=== PATIENT | male | born 1995 | race Caucasian/White ===

== ENCOUNTER 2017-07-19 10:17 | Emergency (ER) | payer MEDICAID, SELFPAY ==
[2017-07-19 10:29] VITALS: BP 160/75; RESP 20; TEMP 37.1; O2SAT 100; BMI 21.3
--- NOTE | 2017-07-19 10:57 | HMH.EDUTC ---
[facility] – [place] Dis[place] Clinical Impression: Strain of left inguinal muscle Qualifiers: Encounter type: initial encounter Qualified Code(s): S39.013A - Strain of muscle, fascia and tendon of pelvis, initial encounter Disposition: Home, Self-Care Condition on Discharge: Good Instructions: DI for Groin Strain Additional Instructions: No lifting > 20 pounds until pain resolves; RTC or to ER if severe pain, color change, unreducible mass Referrals: Provider,Referral, MD [Primary Care Provider] - Time of Disposition: 11:02 Medical Decision Making - Medical Records Medical records reviewed: Yes: I reviewed the patient's medical records. Vital Signs: 07/19/17 10:29 Temperature 98.8 F Temperature Source Temporal Artery Scan Respiratory Rate 20 Blood Pressure [Left Arm] 160/75 Blood Pressure Mean [Left Arm] 103 Blood Pressure Source [Left Arm] Automatic Cuff Blood Pressure Position [Left Arm] Sitting 02 Sat by Pulse Oximetry 100 Oxygen Delivery Method Room Air - Jefferson Inquiry Pt receiving controlled substance: No [facility] – [place] HPI - General Stated complaint: pain in groin area Time Seen by Provider: 07/19/17 10:45 Mode of Arrival: Ambulatory Source of Information: Patient Limitations: No Limitations Description of Symptoms (Recalled from Triage Doc. by RN): GROIN PAIN X 4DAYS HEENT Symptoms (Recalled from RN notes): No Resp Symptoms (Recalled from RN notes): No Skin Symptoms (Recalled from RN notes): No MS Symptoms (Recalled from RN notes): No Functional Status (Recalled from RN notes): NA - History of Present Illness Provider Complaint: Left groin pain X 4-5 days after lifting fire wood. No palpable bulge or mass. Pain is intermittent. Worse with bending over or lifting. No pain with urination or defecation. No fever. No N/V/D. Onset (ago): day(s) (4) Location: genitals, left Severity: mild Quality: aching Consistency: intermittent Exacerbating factors: movement Treatments prior to arrival: none - Related Data Home Medications Medication Instructions Recorded Confirmed No Known Home Medications [No 07/19/17 07/19/17 Known Home Medications] Allergies Allergy/AdvReac Type Severity Reaction Status Date / Time No Known Allergies Allergy Verified 07/19/17 10:32 - Worker's Comp Is this a Worker's Comp case?: No [facility] History - *Social History Smoking Status: Current every day smoker Alcohol Intake: current Alcohol Intake Frequency:: a few times a week - Psychiatric History Expresses thoughts of harming self/others: None Suicide Plan Description: No Plan ROS Obtained: Yes All systems reviewed & no additional complaints - Genitourinary Male Genitourinary: Reports system reviewed and no additional complaints, except as docu, Denies difficulty urinating, Denies scrotal swelling, Denies testicular pain Physical Exam - General General appearance: alert, in no apparent distress - Chest Chest inspection: Present: normal inspection - Respiratory Respiratory exam: Present: normal lung sounds bilaterally - Cardiovascular Cardiovascular exam: Present: regular rate, normal rhythm - Abdominal Exam Abdominal exam: Present: soft Comment: Left groin tenderness without palpable mass; no increased tenderness or mass with Valsalva - exam: Present: normal inspection. Absent: testicular tenderness, scrotal swelling - Neurological Exam Neurological exam: Present: alert, oriented X3 - Psychiatric Psychiatric exam: Present: normal affect - Skin Skin exam: Present: warm, dry - Lymphatic Lymphatic Findings: no adenopathy
--- NOTE | 2017-07-19 11:01 | ED_ITS ---
[facility] [place] Clinical Impression: Strain of left inguinal muscle Qualifiers: Encounter type: initial encounter Qualified Code(s): S39.013A - Strain of muscle, fascia and tendon of pelvis, initial encounter Disposition: Home, Self-Care Condition on Discharge: Good Instructions: DI for Groin Strain Additional Instructions: No lifting > 20 pounds until pain resolves; RTC or to ER if severe pain, color change, unreducible mass Referrals: Provider,Referral, MD [Primary Care Provider] - Time of Disposition: 11:02 Medical Decision Making - Medical Records Medical records reviewed: Yes: I reviewed the patient's medical records. Vital Signs: 07/19/17 10:29 Temperature 98.8 F Temperature Source Temporal Artery Scan Respiratory Rate 20 Blood Pressure [Left Arm] 160/75 Blood Pressure Mean [Left Arm] 103 Blood Pressure Source [Left Arm] Automatic Cuff Blood Pressure Position [Left Arm] Sitting 02 Sat by Pulse Oximetry 100 Oxygen Delivery Method Room Air - Jefferson Inquiry Pt receiving controlled substance: No [facility] [place] - General Stated complaint: pain in groin area Time Seen by Provider: 07/19/17 10:45 Mode of Arrival: Ambulatory Source of Information: Patient Limitations: No Limitations Description of Symptoms (Recalled from Triage Doc. by RN): GROIN PAIN X 4DAYS HEENT Symptoms (Recalled from RN notes): No Resp Symptoms (Recalled from RN notes): No Skin Symptoms (Recalled from RN notes): No MS Symptoms (Recalled from RN notes): No Functional Status (Recalled from RN notes): NA - History of Present Illness Provider Complaint: Left groin pain X 4-5 days after lifting fire wood. No palpable bulge or mass. Pain is intermittent. Worse with bending over or lifting. No pain with urination or defecation. No fever. No N/V/D. Onset (ago): day(s) (4) Location: genitals, left Severity: mild Quality: aching Consistency: intermittent Exacerbating factors: movement Treatments prior to arrival: none - Related Data Home Medications Medication Instructions Recorded Confirmed No Known Home Medications [No 07/19/17 07/19/17 Known Home Medications] Allergies Allergy/AdvReac Type Severity Reaction Status Date / Time No Known Allergies Allergy Verified 07/19/17 10:32 - Worker's Comp Is this a Worker's Comp case?: No [facility] History - *Social History Smoking Status: Current every day smoker Alcohol Intake: current Alcohol Intake Frequency:: a few times a week - Psychiatric History Expresses thoughts of harming self/others: None Suicide Plan Description: No Plan ROS Obtained: Yes All systems reviewed & no additional complaints - Genitourinary Male Genitourinary: Reports system reviewed and no additional complaints, except as docu, Denies difficulty urinating, Denies scrotal swelling, Denies testicular pain Physical Exam - General General appearance: alert, in no apparent distress - Chest Chest inspection: Present: normal inspection - Respiratory Respiratory exam: Present: normal lung sounds bilaterally - Cardiovascular Cardiovascular exam: Present: regular rate, normal rhythm - Abdominal Exam Abdominal exam: Present: soft Comment: Left groin tenderness without palpable mass; no increased tenderness or mass with Valsalva - exam: Pres
== END 2017-07-19 11:08 | disposition home or self-care (01) ==
PROVIDERS: Emergency Provider Physician Assistant
DX: S39.013A Strain of muscle, fascia and tendon of pelvis, initial encounter (principal); F17.200 Nicotine dependence, unspecified, uncomplicated
CPT/HCPCS: 99202

== ENCOUNTER 2017-08-30 11:39 | Emergency (ER) | payer SELFPAY ==
[2017-08-30 11:53] VITALS: BP 133/85; PULSE 87; RESP 16; TEMP 36.8; O2SAT 98; BMI 21.3
--- NOTE | 2017-08-30 12:11 | XR_ITS ---
XR chest 2V HISTORY: ITS.REASON: flu symptoms, smoker, worsening cough, neg flu ORDERING PHYSICIAN: Shira Headley PATIENT AGE: 22 years COMPARISON: None available FINDINGS: The cardiomediastinal silhouette and pulmonary vascularity are within normal limits. The lungs are clear without infiltrates, suspicious nodules, or pleural effusions. No acute bony abnormalities. IMPRESSION: Negative chest, no acute finding
--- NOTE | 2017-08-30 12:14 | HMH.EDUTC ---
[facility] [place] Clinical Impression: Acute bronchitis Qualifiers: Bronchitis organism: unspecified organism Qualified Code(s): J20.9 - Acute bronchitis, unspecified Disposition: Home, Self-Care Condition on Discharge: Good Instructions: DI for Acute Bronchitis Additional Instructions: * STOP SMOKING!!!! * No sign of bacterial infection. * Monitor Temp. Feeling feverish and having a fever are not the same thing. Tylenol every 4 hours as needed no more then 5 times a day or 4000mg in 24 hours and/or ibuprofen every 6 hours as needed no more then 3200mg in 24 hours (as long as your primary care doctor has told you that it is ok to take both) for fever/aches/pain. ER if fever no less than 101 despite tylenol and ibuprofen * humidifier/vaporizer/hot steamy shower * Inhaler every 4-6 hours as needed like we discussed. If unsure how to use it, ask pharmacist to demonstrate how. Should help open airways and improve cough, wheezing, shortness of breath. * Mucinex during the day for your cough and cough suppressant only at night. Be sure to drink lots of water. Insurance may not cover a prescription of mucinex. Might be cheaper to get 400mg tablets and take 2 tablets morning, midday and evening all with lots of water. * Promethazine DM cough syrup will cause drowsiness. Use it only at night. No driving, operating machinery or caring for small children after taking it. * Start steroid today. Helps with inflammation therefore, cough and wheezing. Follow directions on package. Rvwd side effects. Pt reports they have taken them before. Follow up IMMEDIATELY for new or worsening symptoms OR no noticeable improvement over the next 48-72 hours. 911 for difficulty breathing. Prescriptions: Albuterol Sulfate [Albuterol HFA Inhaler] 1 - 2 puffs IH Q4-6H PRN #1 inh PRN Reason: Shortness Of Breath Or Wheezing methylPREDNISolone [Medrol] 4 mg PO DIRECTED #1 tab.ds.pk Promethazine/Dextromethorphan [Promethazine-Dm Syrup] 5 - 10 ml PO HS PRN #120 ml PRN Reason: Cough Referrals: Provider,Referral, MD [Primary Care Provider] - (we have provided you with a list of providers accepting patients. I would encourage you find a new primary care provider and make an appt JENNI as it can take weeks to get a new patient appointment. In the meantime, follow up in the clinic or ER for new, worsening or persistent symptoms.) Time of Disposition: 12:52 Medical Decision Making Vital Signs: 08/30/17 11:53 Temperature 98.3 F Temperature Source Oral Pulse Rate [Brachial] 87 Respiratory Rate 16 Blood Pressure [Left Arm] 133/85 Blood Pressure Mean [Left Arm] 101 Blood Pressure Source [Left Arm] Automatic Cuff Blood Pressure Position [Left Arm] Sitting 02 Sat by Pulse Oximetry 98 Oxygen Delivery Method Room Air - Lab Data Lab results reviewed: Yes: I reviewed the patient's lab results. Flu A neg Flu B neg Strep neg Orders (Tests/Meds): ORDERS Category Date Time Status CXR 2 view (NOT portable) [XR chest 2V] Stat Exams 08/30/17 12:11 Taken - Radiology Data #1 Image(s): Chest Image Reviewed: Yes I reviewed the patient's radiology image w/the ED provider Preliminary Findings: Normal/NAD Rvwd w/ Dr. Beckham, ER . No acute findings - Jefferson Inquiry Pt receiving controlled substance: No [facility] [place] - General Stated complaint: poss flu Time Seen by Provider: 08/30/17 12:00 Mode of Arrival: Ambulatory Source of Information: Patient Limitations: No Limitations HEENT Symptoms (Recalled from RN notes): Yes Resp Symptoms (Recalled from RN notes): Yes Skin Symptoms (Recalled from RN notes): No MS Symptoms (Recalled from RN notes): No Functional Status (Recalled from RN notes): n/a - History of Present Illness Provider Complaint: Here w/ mom c/o we think the flu . Started w/ scratchy throat one week ago that last 3 days. That resolved. Saturday, 2 days ago, feeling feverish, aches, chills, constant nonprod cough, sore throat n
[2017-08-30 12:55] VITALS: BP 134/75; PULSE 87; RESP 14; TEMP 37.1; O2SAT 100
[2017-08-30 13:13] LABS: UTC Influenza A Antigen Negative (Negative); UTC Influenza B Antigen Negative (Negative); UTC Strep Screen (Rapid) Negative (Negative)
== END 2017-08-30 13:00 | disposition home or self-care (01) ==
PROVIDERS: Emergency Provider Nurse Practitioner Family
DX: J20.9 Acute bronchitis, unspecified (principal)
CPT/HCPCS: 71046; 87804; 87880; 99203

== ENCOUNTER 2017-09-02 14:21 | Emergency (ER) | payer SELFPAY ==
[2017-09-02 15:29] VITALS: BP 134/80; PULSE 78; RESP 20; TEMP 36.8; O2SAT 98; BMI 21.3
--- NOTE | 2017-09-02 15:47 | HMH.EDUTC ---
[facility] – [place] Disposition Clinical Impression: URI (upper respiratory infection) Qualifiers: URI type: unspecified URI Qualified Code(s): J06.9 - Acute upper respiratory infection, unspecified Disposition: Home, Self-Care Condition on Discharge: Good Instructions: DI for Cough -- Adult, DI for Nasal Congestion Additional Instructions: * Monitor Temp. Tylenol and/or Ibuprofen as needed. ER if fever is no less than 101 despite alternating Tylenol and Ibuprofen * Encourage fluids, water, Gatorade, powerade, pedialyte if /toddler/or child * Warm salt water gargles for throat irritation *Warm fluids *Sore throat lozenges *Sleep elevated *humidifier or vaporizer Lots of rest Increase fluids, water, Gatorade, powerade *Flonase 2 sprays each nostril daily but may take 2-3 days to notice improvement with it Follow up IMMEDIATELY for new or worsening of symptoms OR no noticeable improvement over the next 48-72 hours. 911 immediately for any life threatening symptoms such as chest pain or difficulty breathing Prescriptions: Azithromycin [Z-Barrera 250mg Tab] 250 mg PO UD DOSE PK #6 tab Fluticasone Propionate [Flonase 50mcg nasal spray 16gm] 2 spr NS DAILY #1 bottle Referrals: Provider,Referral, MD [Primary Care Provider] - Forms: Work/School Release Time of Disposition: 16:11 Medical Decision Making - Medical Records Medical records reviewed: Yes: I reviewed the patient's medical records. Vital Signs: 09/02/17 15:29 Temperature 98.2 F Temperature Source Temporal Artery Scan Pulse Rate [Brachial] 78 Respiratory Rate 20 Blood Pressure [Right Arm] 134/80 Blood Pressure Mean [Right Arm] 98 Blood Pressure Source [Right Arm] Automatic Cuff Blood Pressure Position [Right Arm] Sitting 02 Sat by Pulse Oximetry 98 Oxygen Delivery Method Room Air - Jefferson Inquiry Pt receiving controlled substance: No Jefferson was queried for this patient: No [facility] [place] HPI - General Stated complaint: Poss Flu Mode of Arrival: Ambulatory Source of Information: Patient Limitations: No Limitations Description of Symptoms (Recalled from Triage Doc. by RN): SEEN A FEW DAYS AGO FOR FLU SYMPTOMS AND FEELS WORSE TODAY HEENT Symptoms (Recalled from RN notes): Yes Resp Symptoms (Recalled from RN notes): No Skin Symptoms (Recalled from RN notes): No MS Symptoms (Recalled from RN notes): No Functional Status (Recalled from RN notes): NA - History of Present Illness Provider Complaint: Patient mother state that he was seen her about 2 weeks ago State that he was diagnosed with virus State that he has continued to get worse State that he has been feverish, sinus pain and congestion and cough State that he has been taking the steriods like prescribed but has continued to get worse Statse that he has been having flu like symptoms, coughing achy, stuffy head and sore throat. - Related Data Previous Rx's Medication Instructions Recorded Albuterol Sulfate [Albuterol HFA 1 - 2 puffs IH Q4-6H PRN #1 inh 08/30/17 Inhaler] Promethazine/Dextromethorphan 5 - 10 ml PO HS PRN #120 ml 08/30/17 [Promethazine-Dm Syrup] methylPREDNISolone [Medrol] 4 mg PO DIRECTED #1 tab.ds.pk 08/30/17 Azithromycin [Z-Barrera 250mg Tab] 250 mg PO UD DOSE PK #6 tab 09/02/17 Fluticasone Propionate [Flonase 2 spr NS DAILY #1 bottle 09/02/17 50mcg nasal spray 16gm] Allergies Allergy/AdvReac Type Severity Reaction Status Date / Time No Known Allergies Allergy Verified 07/19/17 10:32 - Worker's Comp Is this a Worker's Comp case?: No [facility] History I have reviewed the patient's past medical history: Yes Medical History: Denies:: Cancer, Diabetes Mellitus Type 1, Diabetes Mellitus Type 2, Hypertension, MRSA Other Surgeries: Yes: No Previous Surgery Amputation: No Fractures: No - Social History Smoking Status: Current every day smoker Tobacco Type: cigarettes Alcohol Intake: never Alcohol Intake Frequency:: a few times a week - Psychiatric History Expresses tho
--- NOTE | 2017-09-02 16:02 | ED_ITS ---
[facility] – [place] Disposition Clinical Impression: URI (upper respiratory infection) Qualifiers: URI type: unspecified URI Qualified Code(s): J06.9 - Acute upper respiratory infection, unspecified Disposition: Home, Self-Care Condition on Discharge: Good Instructions: DI for Cough -- Adult, DI for Nasal Congestion Additional Instructions: * Monitor Temp. Tylenol and/or Ibuprofen as needed. ER if fever is no less than 101 despite alternating Tylenol and Ibuprofen * Encourage fluids, water, Gatorade, powerade, pedialyte if /toddler/or child * Warm salt water gargles for throat irritation *Warm fluids *Sore throat lozenges *Sleep elevated *humidifier or vaporizer Lots of rest Increase fluids, water, Gatorade, powerade *Flonase 2 sprays each nostril daily but may take 2-3 days to notice improvement with it Follow up IMMEDIATELY for new or worsening of symptoms OR no noticeable improvement over the next 48-72 hours. 911 immediately for any life threatening symptoms such as chest pain or difficulty breathing Prescriptions: Azithromycin [Z-Barrera 250mg Tab] 250 mg PO UD DOSE PK #6 tab Fluticasone Propionate [Flonase 50mcg nasal spray 16gm] 2 spr NS DAILY #1 bottle Referrals: Provider,Referral, MD [Primary Care Provider] - Forms: Work/School Release Time of Disposition: 16:11 Medical Decision Making - Medical Records Medical records reviewed: Yes: I reviewed the patient's medical records. Vital Signs: 09/02/17 15:29 Temperature 98.2 F Temperature Source Temporal Artery Scan Pulse Rate [Brachial] 78 Respiratory Rate 20 Blood Pressure [Right Arm] 134/80 Blood Pressure Mean [Right Arm] 98 Blood Pressure Source [Right Arm] Automatic Cuff Blood Pressure Position [Right Arm] Sitting 02 Sat by Pulse Oximetry 98 Oxygen Delivery Method Room Air - Jefferson Inquiry Pt receiving controlled substance: No Jefferson was queried for this patient: No [facility] – [place] HPI - General Stated complaint: Poss Flu Mode of Arrival: Ambulatory Source of Information: Patient Limitations: No Limitations Description of Symptoms (Recalled from Triage Doc. by RN): SEEN A FEW DAYS AGO FOR FLU SYMPTOMS AND FEELS WORSE TODAY HEENT Symptoms (Recalled from RN notes): Yes Resp Symptoms (Recalled from RN notes): No Skin Symptoms (Recalled from RN notes): No MS Symptoms (Recalled from RN notes): No Functional Status (Recalled from RN notes): NA - History of Present Illness Provider Complaint: Patient mother state that he was seen her about 2 weeks ago State that he was diagnosed with virus State that he has continued to get worse State that he has been feverish, sinus pain and congestion and cough State that he has been taking the steriods like prescribed but has continued to get worse Statse that he has been having flu like symptoms, coughing achy, stuffy head and sore throat. - Related Data Previous Rx's Medication Instructions Recorded Albuterol Sulfate [Albuterol HFA 1 - 2 puffs IH Q4-6H PRN #1 inh 08/30/17 Inhaler] Promethazine/Dextromethorphan 5 - 10 ml PO HS PRN #120 ml 08/30/17 [Promethazine-Dm Syrup] methylPREDNISolone [Medrol] 4 mg PO DIRECTED #1 tab.ds.pk 08/30/17 Azithromycin [Z-Barrera 250mg Tab] 250 mg PO UD DOSE PK #6 tab 09/02/17 Fluticasone Propionate [Flonase 2 spr NS DAILY #1 bottle 09/02/17 50mcg nasal spray 16gm] Allergies Allergy/AdvReac Type Severity Reaction
[2017-09-02 16:12] VITALS: BP 134/80; PULSE 78; RESP 20; TEMP 36.8; O2SAT 98
[2017-09-02 18:15] LABS: UTC Influenza A Antigen Negative (Negative); UTC Influenza B Antigen Negative (Negative); UTC Strep Screen (Rapid) Negative (Negative)
== END 2017-09-02 16:16 | disposition home or self-care (01) ==
PROVIDERS: Emergency Provider Nurse Practitioner
DX: J06.9 Acute upper respiratory infection, unspecified (principal); F17.210 Nicotine dependence, cigarettes, uncomplicated
CPT/HCPCS: 87804; 87880; 99202

== ENCOUNTER 2021-08-25 09:53 | Emergency (ER) | payer OTHER, SELFPAY ==
--- NOTE | 2021-08-25 10:22 | XR_ITS ---
FINAL REPORT TECHNIQUE: Chest PA & Lateral CLINICAL HISTORY: cough, congestion. patient vapes. pt states coughed up blood. pt shielded. COMPARISON: August 30, 2017 FINDINGS: 2 views of the chest were performed. The heart size is normal. The mediastinum is within normal limits. There is no acute cardiopulmonary process. There are no pleural effusions. There is no pneumothorax. The bony thorax appears intact. IMPRESSION: No acute cardiopulmonary process. Reviewed, Interpreted and Dictated by Livan Martin MD Transcribed by Benjy Esqueda Authenticated by Livan Martin MD on 08/25/2021 11:23:52 AM [facility]
--- NOTE | 2021-08-25 12:15 | HMH.EDUTC ---
[facility] – [place] Disposition Clinical Impression: Bronchitis Sinusitis Qualifiers: Sinusitis location: unspecified location Chronicity: acute Recurrence: non-recurrent Qualified Code(s): J01.90 - Acute sinusitis, unspecified Disposition: Home, Self-Care Condition on Discharge: Good Instructions: Sinusitis, DI for Sinusitis, DI for Acute Bronchitis Additional Instructions: Drink plenty of fluids. Take tylenol or ibuprofen for pain or fever. Take the medications as directed. Follow up with your regular doctor. GO TO THE ER FOR ANY WORSENING SYMPTOMS Prescriptions: Brompheniramine/Pseudoephed/Dm [Bromfed Dm Cough Syrup] 5 ml PO Q6HP PRN #240 ml PRN Reason: Cough Transmission Status: Received by [id number] methylPREDNISolone [Medrol] 4 mg PO DIRECTED 6 Days #21 packet Transmission Status: Received by [facility] guaiFENesin [Mucinex 600mg tablet] 1 - 2 tab PO BIDP PRN #30 tab PRN Reason: Congestion Transmission Status: Received by [facility] Azithromycin [Z-Barrera 250mg Tab*] 250 mg PO UD DOSE PK #6 tab Transmission Status: Received by [facility] Referrals: Provider,Referral, [Primary Care Provider] - Time of Disposition: 12:51 Medical Decision Making - Medical Records Medical records reviewed: No: I reviewed the patient's medical records. - Jefferson Inquiry Pt receiving controlled substance: No Vital Signs: 08/25/21 12:35 08/25/21 13:14 Temperature 97.8 F 97.8 F Temperature Source Oral Pulse Rate 55 L Pulse Rate [Left] 55 L Respiratory Rate 20 20 Blood Pressure 132/78 Blood Pressure [Right Arm] 132/78 Blood Pressure Mean [Right Arm] 96 02 Sat by Pulse Oximetry 100 - Lab Data Lab Results 08/25/21 12:32: Strep Scn Rapid Clinic Negative - Radiology Data #1 Image(s): Chest Image Reviewed: Yes I reviewed the patient's radiology image, Yes I have reviewed radiologist's interpretation Preliminary Findings: Normal/NAD, No Infiltrates Seen FINAL REPORT FINAL REPORT TECHNIQUE: Chest PA & Lateral CLINICAL HISTORY: cough, congestion. patient vapes. pt states coughed up blood. pt shielded. COMPARISON: August 30, 2017 FINDINGS: 2 views of the chest were performed. The heart size is normal. The mediastinum is within normal limits. There is no acute cardiopulmonary process. There are no pleural effusions. There is no pneumothorax. The bony thorax appears intact. IMPRESSION: No acute cardiopulmonary process. Reviewed, Interpreted and Dictated by Livan Martin MD Transcribed by Benjy Esqueda Authenticated by Livan Martin MD on 08/25/2021 11:23:52 AM [facility] HPI - General Stated complaint: coughing up blood Time Seen by Provider: 08/25/21 12:15 - History of Present Illness Provider Complaint: He states that he has had a cough and chest congestion for the past 3 days or so. He is now getting more congestion in his sinuses too. He primarily came in today because this morning he coughed up some sputum that appeared bloody. He denies any shortness of breath and chest pain. He denies any known covid-19 exposure. - Related Data Previous Rx's Medication Instructions Recorded Triamcinolone Acetonide 1 applicatio TP TIDP PRN 7 Days #1 01/27/19 tube methylPREDNISolone [Medrol] 4 mg PO DIRECTED 6 Days #21 01/27/19 tab.ds.pk Azithromycin [Z-Barrera 250mg Tab*] 250 mg PO UD DOSE PK #6 tab 08/25/21 Brompheniramine/Pseudoephed/Dm 5 ml PO Q6HP PRN #240 ml 08/25/21 [Bromfed Dm Cough Syrup] guaiFENesin [Mucinex 600mg tablet] 1 - 2 tab PO BIDP PRN #30 tab 08/25/21 methylPREDNISolone [Medrol] 4 mg PO DIRECTED 6 Days #21 08/25/21 packet Allergies Allergy/AdvReac Type Severity Reaction Status Date / Time No Known Allergies Allergy Verified 07/19/17 10:32 [facility] History - Hepatitis A Screen Attestation statement:: This patient has been screened for Hepatitis A risk factors.
[2021-08-25 12:35] VITALS: BP 132/78; PULSE 55; RESP 20; TEMP 36.6; O2SAT 100; BMI 21.9
[2021-08-25 12:48] LABS: UTC Strep Screen (Rapid) Negative (Negative)
[2021-08-25 13:14] VITALS: BP 132/78; PULSE 55; RESP 20; TEMP 36.6
== END 2021-08-25 13:14 | disposition home or self-care (01) ==
PROVIDERS: Emergency Provider Nurse Practitioner Family
DX: J20.9 Acute bronchitis, unspecified (principal); J01.90 Acute sinusitis, unspecified
CPT/HCPCS: 71046; 87880; 99202; C9803; G0463; U0003; U0005

== ENCOUNTER 2023-08-02 19:18 | Emergency (ER) | payer OTHER, SELFPAY ==
[2023-08-02 19:19] VITALS: BP 145/80; PULSE 115; RESP 20; TEMP 37.9; O2SAT 96; BMI 22.5
[2023-08-02 19:25] VITALS: BMI 22.5
[2023-08-02 19:34] LABS: Coronavirus 19, PCR Not Detected (NotDetected); Influenza B, PCR Not Detected (NotDetected)
[2023-08-02] MEDS: IBUPROFEN 600 MG TABLET PO (19:55)
[2023-08-02] MEDS: ACETAMINOPHEN 500MG TAB 1000 MG PO (19:55)
[2023-08-02 19:56] LABS: Influenza A, PCR Detected (NotDetected)
[2023-08-02] MEDS: DEXAMETHASONE 4MG TABLET 10 MG PO (19:56)
[2023-08-02 20:01] VITALS: BP 138/79; PULSE 100; RESP 20; TEMP 37.6; O2SAT 96
--- NOTE | 2023-08-02 20:01 | ED_ITS ---
Discharge Plan Disposition Patient Disposition: Home, Self-Care Prescriptions Prescriptions: New oseltamivir [Tamiflu] 75 mg capsule 75 mg PO BID 5 Days Qty: 10 0RF No Action triamcinolone acetonide 15 GM cream 1 applicatio TP TIDP PRN (Reason: Itching) 7 Days Qty: 1 0RF methylprednisolone 4 MG tablets,dose pack 4 mg PO DIRECTED 6 Days Qty: 21 0RF azithromycin 250 MG tablet 250 mg PO UD DOSE PK Qty: 6 0RF Rx Instructions: Take two (2) tablets today, then one (1) tablet days #2 thru #5 xbsxbkgoefjhoao-kgediapdg-JF 118 ML syrup 5 ml PO Q6HP PRN (Reason: Cough) Qty: 240 0RF guaifenesin 600 MG tablet extended release 12hr 1 - 2 tab PO BIDP PRN (Reason: Congestion) Qty: 30 0RF methylprednisolone 4 MG tablets,dose pack 4 mg PO DIRECTED 6 Days Qty: 21 0RF Referrals Follow up/Referrals: Provider,Referral, MD [Primary Care Provider] - See instructions Activity Restrictions/Add. Instructions Additional Instructions/Restrictions: Tamiflu twice daily for 5 days. Call your family doctor to establish care for this visit to the emergency department and schedule follow-up within 48 hours to ensure improvement. If you have any worsening of your condition or any other concerning signs or symptoms, return to the emergency department or your primary care doctor for further evaluation. Take Tylenol 1000 mg every 6 hours (4 times daily) and ibuprofen 400 mg every 6 hours (4 times daily) as needed with food and water to prevent GI upset and kidney damage. Daily Zyrtec or Claritin will also help. Clinical Impressions Clinical Impression: Influenza A Stand Alone Forms Stand Alone Forms: Work/School Release Discharge ED Provider: Vitaly Palacio General Adult HPI General Chief complaint: Fever Stated complaint: fever 104.4 ba munoz cough runny nose Time Seen by Provider: 08/02/23 19:22 Mode of Arrival: Family Vehicle Source of Information: Patient Limitations: No Limitations Description of Symptoms (Recalled from ER Triage Doc. by RN): 28 y/o male presents to the ED for fever and body aches X 2 days. Pt is A&O*4. Pt has taken OTC flu medicine today. Last dose approx an hour ago. History of Present Illness HPI narrative: 28-year-old male no relevant medical history presenting with fevers, chills, body aches. Started yesterday, 08/01 afternoon. Has been taking Tylenol, Yvrose- [place], NyQuil without much relief came for further evaluation. Related Data Previous Rx's Medication Instructions Recorded methylprednisolone 4 mg tablets in 4 mg PO DIRECTED 6 days ##21 01/27/19 a dose pack triamcinolone acetonide 0.025 % 1 applicatio TP TIDP PRN Itching 7 01/27/19 topical cream days #1 tube azithromycin 250 mg tablet 250 mg PO UD DOSE PK #6 tabs 08/25/21 pcfhjqmqpjoqaij-bzdxcsoykuguaxs-XJ 5 ml PO Q6HP PRN Cough #240 mL 08/25/21 2 mg-30 mg-10 mg/5 mL oral syrup guaifenesin 600 mg tablet, 1 - 2 tab PO BIDP PRN Congestion 08/25/21 extended release 12 hr #30 tabs methylprednisolone 4 mg tablets in 4 mg PO DIRECTED 6 days #21 08/25/21 a dose pack packets oseltamivir 75 mg capsule (Tamiflu) 75 mg PO BID 5 days #10 caps 08/02/23 Allergies Allergy/AdvReac Type Severity Reaction Status Date / Time No Known Allergies Allergy Verified 07/19/17 10:32 [facility] Disclaimer: The information contained in this section may have been updated after the patient was seen, as this information can be updated by other users. Social History Smoking Status: Current every day smoker tobacco type: cigarettes packs per day: 1 alcohol intake: never current occupational status: other Travel in the last 8 weeks: None ROS Obtained: Yes All systems reviewed & no additional complaints except as documented Physical Exam General General appearance: alert and in no apparent distress Head Head exam: atraumatic and normocephalic Eye Eye exam: Present normal appearance, PERRL and EOMI ENT ENT exam: Present mucous membranes moist Neck Neck exam: Present normal inspection, full ROM and trachea midline Respiratory Respiratory exam: Absent respiratory distress, wheezes, stridor, accessory muscle use or prolonged expiratory phase Cardiovascular Cardiovascular exam: Present normal rhythm Abdominal Exam Abdominal exam: Present soft; Absent distention, tenderness, guarding, rebound or rigidity Extremities Exam Extremities exam: Absent edema Neurological Exam Neurological exam: Present alert, oriented X3, CN II-XII intact and normal gait; Absent motor sensory deficit Skin Skin exam: Present warm and dry; Absent diaphoresis or erythema Medical Decision Making Medical Records Medical records reviewed: Yes I reviewed the patient's medical records. [place] Inquiry Pt receiving controlled substance: No [place] was queried for this patient: No Vital Signs: 08/02/23 19:19 08/02/23 19:36 08/02/23 20:01 Temperature 100.3 F H 99.7 F H Temperature Source Oral Oral Oral Pulse Rate 100 H Pulse Rate [Left] 115 H Respiratory Rate 20 20 Blood Pressure 138/79 Blood Pressure [Left Arm] 145/80 H Blood Pressure Mean [Left Arm] 101 Blood Pressure Source [Left Arm] Automatic Cuff Blood Pressure Position [Left Arm] Sitting 02 Sat by Pulse Oximetry 96 Oxygen Delivery Method Room Air Lab Data Lab Results 08/02/23 19:24: SARS-CoV-2 (PCR) Not detected, Influenza A Untype (PCR) Detected A, Influenza Type B (PCR) Not detected Orders (Tests/Meds): ED MEDICATIONS Discontinued Medications Generic Name Dose Route Start Last Admin Trade Name Freq PRN Reason Stop Dose Admin Acetaminophen 1,000 mg 08/02/23 19:44 08/02/23 19:55 Acetaminophen 500mg Tab PO 08/02/23 19:45 1,000 mg ONCE ONE Administration Dexamethasone 10 mg 08/02/23 19:56 08/02/23 19:56 Dexamethasone 4mg Tablet PO 08/02/23 19:57 10 mg ONCE ONE Administration Ibuprofen 600 mg 08/02/23 19:44 08/02/23 19:55 Ibuprofen 600 Mg Tablet PO 08/02/23 19:45 600 mg ONCE ONE Administration ORDERS Category Date Time Status Rapid PCR Covid and Flu A/B Stat Lab 08/02/23 19:24 Completed Medical Decision Narrative: 28-year-old male no relevant medical history presenting with fevers, chills, body aches. Started yesterday, 08/01 afternoon. Has been taking Tylenol, Yvrose- [place], NyQuil without much relief came for further evaluation. History was obtained via conversation with patient. On arrival, patient hemodynamically stable, alert, oriented x4, appropriate, GCS 15, moving all extremities spontaneously, pupils equal and reactive to light. Full physical exam performed and significant for very well-appearing male. Intermittently sneezing and coughing. He is febrile and mildly tachycardic. No respiratory distress. Normal cardiopulmonary exam. Differential includes viral syndrome, among others. Patient was given Tylenol, Motrin, Decadron for symptomatic management and correction of underlying abnormalities. Workup independently interpreted and significant for influenza A positivity. Because patient at baseline without signs or symptoms of clinical decompensation, deemed appropriate for discharge. Results were relayed to patient who voiced understanding and were agreeable to outpatient management and follow up. At the time of discharge the patient was hemodynamically stable, tolerating PO, and mobilizing appropriately. Critical Care Critical Care Time Critical Care Time: No
== END 2023-08-02 20:13 | disposition home or self-care (01) ==
PROVIDERS: Emergency Provider Emergency Medicine
DX: J10.1 Influenza due to other identified influenza virus with other respiratory manifestations (principal); R50.9 Fever, unspecified; R05.9 Cough, unspecified; F17.210 Nicotine dependence, cigarettes, uncomplicated
CPT/HCPCS: 87636; 99283

== ENCOUNTER 2024-03-17 15:21 | Emergency (ER) | payer BC, SELFPAY ==
--- NOTE | 2024-03-17 15:47 | EXP.UTC ---
Discharge Plan Disposition Patient Disposition: Home, Self-Care Condition: Good Prescriptions Prescriptions: No Action oseltamivir [Tamiflu] 75 mg capsule 75 mg PO BID 5 Days Qty: 10 0RF triamcinolone acetonide 15 GM cream 1 applicatio TP TIDP PRN (Reason: Itching) 7 Days Qty: 1 0RF methylprednisolone 4 MG tablets,dose pack 4 mg PO DIRECTED 6 Days Qty: 21 0RF azithromycin 250 MG tablet 250 mg PO UD DOSE PK Qty: 6 0RF Rx Instructions: Take two (2) tablets today, then one (1) tablet days #2 thru #5 iovrayvptiavowl-fjooolnjn-HJ 118 ML syrup 5 ml PO Q6HP PRN (Reason: Cough) Qty: 240 0RF guaifenesin 600 MG tablet extended release 12hr 1 - 2 tab PO BIDP PRN (Reason: Congestion) Qty: 30 0RF methylprednisolone 4 MG tablets,dose pack 4 mg PO DIRECTED 6 Days Qty: 21 0RF Referrals Follow up/Referrals: Yonas Macedo DO [Staff Physician] - See instructions Provider,Referral, [Primary Care Provider] - See instructions Activity Restrictions/Add. Instructions Additional Instructions/Restrictions: Rest the extremity, Wear the giancarlo wrap for compression, Elevate the extremity as tolerated while you are resting. Take ibuprofen for pain. Follow up with Dr. Macedo (orthopedics) if you continue to have symptoms. I put in a referral but you need to call his office and schedule an appointment. Follow up with your regular doctor. GO TO THE ER FOR ANY WORSENING SYMPTOMS Clinical Impressions Clinical Impression: Contusion of leg, right, Traumatic ecchymosis of right lower leg Instructions Patient Instructions: Contusion, DI for Contusion Print Language Print Language: Bengali Discharge ED Provider: Basil Parham [facility] General Stated complaint: RT leg pain Time Seen by Provider: 03/17/24 15:47 History of Present Illness Provider Complaint: He states that he was hit on is right parra area with a very heavy pipe 1 week ago while unloading it from a truck. Since then he has had right lower leg pain. Over the past few days he has had bruising of the affected area and some bruising of his ankle and heel area, despite not being injured there. He denies any other injury or complaints. Related Data Previous Rx's ?Medication ?Instructions ?Recorded methylprednisolone 4 mg tablets in 4 mg PO DIRECTED 6 days ##21 01/27/19 a dose pack triamcinolone acetonide 0.025 % 1 applicatio TP TIDP PRN Itching 7 01/27/19 topical cream days #1 tube azithromycin 250 mg tablet 250 mg PO UD DOSE PK #6 tabs 08/25/21 fvjfnpyflswlssk-zawqcjfvortdhhi-QM 5 ml PO Q6HP PRN Cough #240 mL 08/25/21 2 mg-30 mg-10 mg/5 mL oral syrup guaifenesin 600 mg tablet, 1 - 2 tab PO BIDP PRN Congestion 08/25/21 extended release 12 hr #30 tabs methylprednisolone 4 mg tablets in 4 mg PO DIRECTED 6 days #21 08/25/21 a dose pack packets oseltamivir 75 mg capsule (Tamiflu) 75 mg PO BID 5 days #10 caps 08/02/23 Allergies Allergy/AdvReac Type Severity Reaction Status Date / Time No Known Allergies Allergy Verified 07/19/17 10:32 [facility] Disclaimer: The information contained in this section may have been updated after the patient was seen, as this information can be updated by other users. Social History Smoking Status: Current every day smoker tobacco type: cigarettes packs per day: 1 alcohol intake: never current occupational status: other Travel in the last 8 weeks: None ROS Obtained: Yes All systems reviewed & no additional complaints except as documented Constitutional Constitutional: Denies chills and Denies fever(s) Eyes Eyes: Denies eye discharge ENT Ears, Nose, Mouth, and Throat: Denies dizziness, Denies otalgia and Denies sore throat Cardiovascular Cardiovascular: Denies chest pain Respiratory Respiratory: Denies shortness of breath, Denies chest congestion, Denies cough, Denies stridor and Denies wheezing Gastrointestinal Gastrointestingal: Denies nausea or vomiting Musculoskeletal Musculoskeletal: Reports as per HPI Integumentary/Breasts Skin/Breast: Reports as per HPI Neurologic Neurologic: Denies dizziness and Denies paresthesias Allergic/Immunologic Allergic/Immunologic: Denies wheezing Physical Exam General General appearance: alert and in no apparent distress Head Head exam: atraumatic, normocephalic and normal inspection Eye Eye exam: Present normal appearance, PERRL and EOMI ENT ENT exam: Present normal exam, normal oropharynx, mucous membranes moist, TM's normal bilaterally and normal external ear exam Neck Neck exam: Present normal inspection, full ROM and trachea midline; Absent meningismus or lymphadenopathy Chest Chest inspection: Present normal inspection and symmetric chest wall rise; Absent tenderness Respiratory Respiratory exam: Present normal lung sounds bilaterally; Absent respiratory distress Cardiovascular Cardiovascular exam: Present regular rate and normal rhythm; Absent JVD Abdominal Exam Abdominal exam: Present soft and normal bowel sounds; Absent distention, tenderness or guarding Extremities Exam Extremities exam: Present normal capillary refill; Absent calf tenderness Expanded Lower Extremity Exam Right: Hip/Pelvis exam: Present normal inspection and full ROM; Absent tenderness Upper leg exam: Present normal inspection and full ROM; Absent tenderness Knee exam: Present normal inspection, full ROM and knee extension intact; Absent tenderness Lower leg exam: Present tenderness, swelling and Achilles tendon intact; Absent abrasion, laceration, ecchymosis, deformity, crepitus, dislocation, erythema, palpable cord or Homans' sign Ankle exam: Present normal inspection, full ROM and ecchymosis; Absent tenderness Foot/toe exam: Present normal inspection and full ROM; Absent tenderness Neurovascular/Tendon exam: Present normal capillary refill, normal 2-point discrimination and normal fine/light touch; Absent pulse deficit, motor deficit, sensory deficit, tendon deficit, extremity cold to touch or pallor Gait: observed and normal Back Exam Back exam: Present normal inspection; Absent tenderness Neurological Exam Neurological exam: Present alert and oriented X3 Psychiatric Psychiatric exam: Present normal affect and normal mood Skin Skin exam: Present warm, dry, intact and normal color Lymphatic Lymphatic Findings: no adenopathy Medical Decision Making Medical Records Medical records reviewed: No I reviewed the patient's medical records. Screening: Per USPSTF and CDC recommendations, given the prevalence of disease in our region, it is our hospital?s policy to screen for HIV and viral Hepatitis for all patients aged 18 and over and those with ongoing risk factors. [place] Inquiry Pt receiving controlled substance: No Radiology Data #1: Image(s): Tib/Fib Image Reviewed: Yes I reviewed the patient's radiology image and Yes I have reviewed radiologist's interpretation Preliminary Findings: Normal/NAD Accession No. : [id number] Patient Name / ID : AASHISH THOMAS / [id number] Exam Date : 03/17/2024 17:15:27 ( Final ) Study Comment : Sex / Age : F / 70Y Creator : JOAN BEAL MD Dictator : Scientific Affairs Manager : [employer] Equipment Operator : JOAN BEAL MD Approver2 : Report Date : 03/17/2024 17:51:44 My Comment : PROCEDURE INFORMATION: Exam: XR Right Hand Exam date and time: 03/17/2024 5:15 PM Age: 70 years old Clinical indication: Injury or trauma; Other: Pin went into finger, unsure if part of pin is still in there or not; Puncture; Right; Index finger; Additional info: Pin stuck in finger TECHNIQUE: Imaging protocol: Radiologic exam of the right hand. Views: 3 or more views. COMPARISON: No relevant prior studies available. FINDINGS: Bones/joints: No acute osseous injury. Mild degenerative changes 1st basal joint. Soft tissues: There is some soft tissue swelling. No radiopaque foreign body is seen. IMPRESSION: No radiopaque foreign body or acute osseous abnormality. Procedures Risk/Benefits of Procedure(s) Were Explained: Yes Orthopedic Splinting/Casting Injury #1: Side: right Lower Extremity Injury Location: lower leg Lower Extremity Immobilizer: Giancarlo wrap and applied by nurse/dr ackerman Post Cast/Splinting Neuro Status: intact and no change Post Cast/Splinting Vasc Status: intact and no change
[2024-03-17 15:51] VITALS: BP 165/102; PULSE 61; RESP 16; TEMP 36.6; O2SAT 100; BMI 27.2
--- NOTE | 2024-03-17 15:51 | XR_ITS ---
FINAL REPORT CLINICAL HISTORY: hit red spot from being hit by a pipe in mid of lower leg , bruising down leg to ankle FINDINGS: Right tibia fibula Two views were obtained. There is no acute fracture or dislocation. The joint spaces appear normal. No soft tissue abnormality is identified. IMPRESSION: No acute process. Reviewed, Interpreted and Dictated by Livan Martin MD Transcribed by Monserrat Nunez Authenticated and [facility]
[2024-03-17 16:58] VITALS: BP 165/102; PULSE 61; RESP 16; TEMP 36.6; O2SAT 100
== END 2024-03-17 16:59 | disposition home or self-care (01) ==
PROVIDERS: Emergency Provider Nurse Practitioner Family
DX: S80.11XA Contusion of right lower leg, initial encounter (principal); M79.604 Pain in right leg; W20.8XXA Other cause of strike by thrown, projected or falling object, initial encounter
CPT/HCPCS: 73590; 99212; 99213; G0463

== ENCOUNTER 2024-10-12 21:29 | Emergency (ER) | payer BC, SELFPAY ==
[2024-10-12] VITALS (7 sets, daily range): BP systolic 134–173; BP diastolic 82–105; PULSE 73–87; RESP 13–22; TEMP 36.6–36.7; O2SAT 99–100; BMI 27.7
--- NOTE | 2024-10-12 21:27 | ECG_ITS ---
APPROVED REPORT Exam: Resting ECG HR:81 bpm ECG Measurements Heart Rate 81 AXES WY 108 P 68 QRSd 90 QRS 59 QT 323 T -3 QTc 360 Conclusion SINUS RHYTHM WITH SHORT WY INTERVAL NONSPECIFIC T-WAVE ABNORMALITY ABNORMAL ECG UNCONFIRMED REPORT Electronically signed by : Basil Nolasco, 10/12/2024 22:58:55
--- NOTE | 2024-10-12 21:58 | XR_ITS ---
PROCEDURE INFORMATION: Exam: XR Chest Exam date and time: 10/12/2024 10:07 PM Age: 29 years old Clinical indication: Dyspnea TECHNIQUE: Imaging protocol: Radiologic exam of the chest. Views: 1 view. COMPARISON: CR XR CHEST 2V 08/25/2021 10:18 AM FINDINGS: Tubes, catheters and devices: None. Lungs: Left lung volume appears decreased. Bilateral pulmonary linear interstitial opacities identified within lower lungs. The pulmonary opacities are most prominent within the lower right lung. The bilateral upper lungs appear clear. Pleural spaces: No pleural effusion. No pneumothorax. Heart/Mediastinum: Mediastinum and delmar appear unremarkable. Diaphragm: Elevation of the left hemidiaphragm is demonstrated. Bones/joints: No acute bony abnormality identified. IMPRESSION: Pulmonary atelectasis or acute infiltrates within lower chest bilaterally.
[2024-10-12] MEDS: LACTATED RINGERS 1000ML 1,000 ML 999 ML IV (22:02)
[2024-10-12] MEDS: KETOROLAC 30MG/ML VIAL 15 MG IV (22:02)
[2024-10-12 22:08] LABS: Basophils # 0.1 K/mm3 (0-0.2); Basophils % 0.3 % (0.1-2.0); Eosinophils # 0.2 K/mm3 (0.0-0.4); Hematocrit 50.1 % (42.0-52.0); Lymphocytes % 14.1 % (10-50); Mean Corpuscular HGB Conc 33.9 g/dL (31.8-35.4); Mean Corpuscular Hemoglobin 30.5 pg (27.0-31.2); Mean Corpuscular Volume 89.9 fl (80-94); Mean Platelet Volume 9.5 fl (7.4-10.4); Monocytes # 0.8 K/mm3 (0.1-1.0); Monocytes % 5.5 % (1.7-9.3); Neutrophils # 11.4 K/mm3 (1.8-7.8); Neutrophils % 78.5 % (37.0-80.0); Nucleated Red Blood Cells # 0 10^3/uL; Nucleated Red Blood Cells % 0 %; Platelet Count 221 K/mm3 (142-424); Red Blood Count 5.57 M/mm3 (4.60-6.20); Red Cell Distribution Width 11.9 % (11.5-17.5); Red Cell Distribution Width-SD 39.2 fL; White Blood Count 14.5 K/mm3 (4.8-10.8)
--- NOTE | 2024-10-12 22:26 | [facility].EDCP ---
Discharge Plan Disposition Patient Disposition: Home, Self-Care Prescriptions Prescriptions: No Action oseltamivir [Tamiflu] 75 mg capsule 75 mg PO BID 5 Days Qty: 10 0RF triamcinolone acetonide 15 GM cream 1 applicatio TP TIDP PRN (Reason: Itching) 7 Days Qty: 1 0RF methylprednisolone 4 MG tablets,dose pack 4 mg PO DIRECTED 6 Days Qty: 21 0RF azithromycin 250 MG tablet 250 mg PO UD DOSE PK Qty: 6 0RF Rx Instructions: Take two (2) tablets today, then one (1) tablet days #2 thru #5 sarowprkvtkybjx-ioyabpxzj-YN 118 ML syrup 5 ml PO Q6HP PRN (Reason: Cough) Qty: 240 0RF guaifenesin 600 MG tablet extended release 12hr 1 - 2 tab PO BIDP PRN (Reason: Congestion) Qty: 30 0RF methylprednisolone 4 MG tablets,dose pack 4 mg PO DIRECTED 6 Days Qty: 21 0RF Referrals Follow up/Referrals: Provider,Referral, MD [Primary Care Provider] - See instructions Activity Restrictions/Add. Instructions Additional Instructions/Restrictions: No emergent cardiopulmonary emergency identified today. If your symptoms return and are persistent please return to the emergency department. We have given you a list of primary care doctors I recommend that you follow-up with them to establish care. Clinical Impressions Clinical Impression: Atypical chest pain Print Language Print Language: Azerbaijani Discharge ED Provider: Elaine Nolasco [facility] General Chief Complaint: Chest Pain Stated Complaint: Chest pain Time Seen by Provider: 10/12/24 21:42 Mode of Arrival: Ambulatory Source of Information: Patient Description of Symptoms (Recalled from ER Triage Doc. by RN): pt reports with complaints of chest pain that radiates into the left arm and into his back. pt reports a similar episode that occured this AM as well. pt reports a history of caridac issueas as a child, pt reports hx of a or a hole in his heart. History of Present Illness HPI narrative: Patient is a 29-year-old male presenting today with left inferolateral chest pain. States he woke up this morning had a few minutes of pain subsequently resolved and then later this afternoon [place] struck him suddenly lasted for a few minutes his whole body tensed up for a few minutes and then subsequently he had significant achiness throughout his whole body. The chest pain and shortness of breath completely resolved after a matter of a few minutes. Was not exertional it was located in 1 particular area which was left inferior lateral aspect of his chest wall. No abdominal pain. No history of DVT PE lower extremity swelling no history of clotting in his family no history of sudden cardiac in his family he does not use any drugs particularly meth or cocaine. He has no other past medical history. He is currently without any symptoms stated that he had a little bit of pressure in his left upper quadrant/left lower aspect of his chest wall prior to arrival but that has subsequently resolved. His only other symptom that he states at the moment is little bit of complete body achiness which he felt after the 3-minute symptoms this afternoon. Related Data Previous Rx's ?Medication ?Instructions ?Recorded methylprednisolone 4 mg tablets in 4 mg PO DIRECTED 6 days ##21 01/27/19 a dose pack triamcinolone acetonide 0.025 % 1 applicatio TP TIDP PRN Itching 7 01/27/19 topical cream days #1 tube azithromycin 250 mg tablet 250 mg PO UD DOSE PK #6 tabs 08/25/21 pimxsseqflqkcvb-fgnognvildduynb-JN 5 ml PO Q6HP PRN Cough #240 mL 08/25/21 2 mg-30 mg-10 mg/5 mL oral syrup guaifenesin 600 mg tablet, 1 - 2 tab PO BIDP PRN Congestion 08/25/21 extended release 12 hr #30 tabs methylprednisolone 4 mg tablets in 4 mg PO DIRECTED 6 days #21 08/25/21 a dose pack packets oseltamivir 75 mg capsule (Tamiflu) 75 mg PO BID 5 days #10 caps 08/02/23 Allergies Allergy/AdvReac Type Severity Reaction Status Date / Time No Known Allergies Allergy Verified 07/19/17 10:32 [facility] Disclaimer: The information contained in this section may have been updated after the patient was seen, as this information can be updated by other users. Social History Smoking Status: Current every day smoker tobacco type: cigarettes packs per day: 1 alcohol intake: never current occupational status: other Travel in the last 8 weeks: None Have you lived/traveled outside [place] in past 30 days?: No Contact w/someone who lives/traveled outside [place] past 30 days?: No Exposure to someone with infectious disease in past 14 days?: No Do you have a fever (greater than 100.4 F or 38 C)?: No Have you tested positive for COVID-19: No Exposed to someone with COVID-19 in past 14 days?: No Do you have a sore throat?: No Do you have a cough?: No Do you have any weakness?: No Do you have any diarrhea?: No Are you experiencing any unusual bleeding?: No Do you have any muscle aches/pain?: No Do you have any abdominal pain?: No Are you experiencing loss of taste or smell?: No ROS Obtained: Yes All systems reviewed & no additional complaints except as documented Physical Exam General General appearance: alert and in no apparent distress Respiratory Respiratory exam: Present normal lung sounds bilaterally; Absent respiratory distress Cardiovascular Cardiovascular exam: Present regular rate and normal rhythm Abdominal Exam Abdominal exam: Present soft; Absent distention or tenderness Neurological Exam Neurological exam: Present alert HEART Score HEART Score HEART Score assessment performed?: Yes History (anamnesis): Slightly suspicious ECG: Normal Age: <45 years Risk factors: No known risk factors Troponin: </= normal limit HEART Score: 0 Critical Care Critical Care Time Critical Care Time: No Medical Decision Making [place] Inquiry Pt receiving controlled substance: No Vital Signs Vital Signs: 10/12/24 21:30 10/12/24 21:45 10/12/24 22:00 Temperature 98.1 F Temperature Source Oral Pulse Rate 83 Pulse Rate [Right] 86 Respiratory Rate 13 16 14 Blood Pressure 173/103 H 153/86 H Blood Pressure [Right Arm] 159/105 H Blood Pressure Mean [Right Arm] 123 02 Sat by Pulse Oximetry 100 99 10/12/24 22:15 10/12/24 22:25 10/12/24 22:30 Temperature Temperature Source Pulse Rate 73 Pulse Rate [Right] Respiratory Rate 14 22 Blood Pressure 147/83 H 139/87 Blood Pressure [Right Arm] Blood Pressure Mean [Right Arm] 02 Sat by Pulse Oximetry Lab Data Lab results reviewed: Yes I reviewed the patient's lab results. Labs: Lab Results 10/12/24 21:32: WBC 14.5 H, RBC 5.57, Hgb 17.0, Hct 50.1, MCV 89.9, MCH 30.5, MCHC 33.9, RDW 11.9, Plt Count 221, MPV 9.5, Neut % (Auto) 78.5, Lymph % (Auto) 14.1, [place] % (Auto) 5.5, Eos % (Auto) 1.0, Baso % (Auto) 0.3, Neut # (Auto) 11.4 H, Lymph # (Auto) 2.0, [place] # (Auto) 0.8, Eos # (Auto) 0.2, Baso # (Auto) 0.1, D-Dimer 0.62 H, Sodium 141, Potassium 4.1, Chloride 103, Carbon Dioxide 27, Anion Gap 15.1 H, BUN 8 L, Creatinine 0.80, Estimated Creat Clear 206, Estimated GFR 115, Est GFR ( Amer) 139, Glucose 117 H, Calcium 9.5, Total Bilirubin 0.6, AST 27, ALT 30, Alkaline Phosphatase 77, Troponin I < 0.01, Total Protein 8.2, Albumin 4.9, Globulin 3.3 H, Albumin/Globulin Ratio 1.5, Lipase 26, HCV Ab KAIDEN w/Rflx PCR Qn Negative, HIV Ag/Ab Combo Qual Negative 10/12/24 21:32 10/12/24 21:32 Response Orders (Tests/Meds): ED MEDICATIONS Generic Name Dose Route Start Last Admin Trade Name Freq PRN Reason Stop Dose Admin Lactated Ringer's 1,000 mls @ 999 mls/hr 10/12/24 22:00 10/12/24 22:02 Lactated Ringer's 1000 Ml Bag IV 10/12/24 23:00 999 mls/hr .Q1H1M [id number] Administration Discontinued Medications Generic Name Dose Route Start Last Admin Trade Name Freq PRN Reason Stop Dose Admin Ketorolac Tromethamine 15 mg 10/12/24 21:58 10/12/24 22:02 Ketorolac 30mg/Ml Vial IV 10/12/24 21:59 15 mg ONCE ONE Administration ORDERS Category Date Time Status CXR --portable [XR chest portable] Stat Exams 10/12/24 21:58 Completed CBC w/Auto Diff [Complete Blood Count Auto Diff] Stat Lab 10/12/24 21:32 Completed CMP [Comprehensive Metabolic Panel] Stat Lab 10/12/24 21:32 Completed D-Dimer Stat Lab 10/12/24 21:32 Completed HIV Combo Stat Lab 10/12/24 21:32 Completed Hepatitis C Ab Qual. W/ RFX Stat Lab 10/12/24 21:32 Completed Lipase Stat Lab 10/12/24 21:32 Completed Trop I [Troponin I] Stat Lab 10/12/24 21:32 Completed Troponin I Q3H Lab 10/13/24 01:00 Ordered Troponin I Q3H Lab 10/13/24 04:00 Ordered ECG Data Tracing #1: Attestation: I reviewed this ECG and interpreted as documented below: ECG Narrative: Ventricular rate of 81 normal sinus rhythm no acute ischemic changes noted normal axis nonspecific short MT interval noted MDM Narrative Medical Decision Narrative: Patient with above history and physical essentially asymptomatic at this point. This is not consistent with an ongoing cardiopulmonary or intra-abdominal or cardiovascular emergency. EKG was unremarkable. Troponin undetectably low. D-dimer less than 1.0 utilizing years criteria this effectively rules out pulmonary embolism. No further workup needed from that standpoint. Chest x-ray was unremarkable. Unclear as to what did cause the patient's symptoms but this is not consistent with acute coronary syndrome aortic dissection pulmonary embolism etc. Also he has no abdominal discomfort no abdominal pain this is not consistent with any left upper quadrant pathology at the moment. What ever did cause the patient's symptoms have since resolved. Chest x-ray performed which I personally interpreted which shows no acute cardiopulmonary emergency I have advised that the patient return if he has any recurrence or persistence of his symptoms. Patient was discharged in stable condition he is also given a list of primary care doctors to follow-up with.
[2024-10-12 22:31] LABS: Alanine Aminotransferase 30 U/L (12-78); Albumin Level 4.9 g/dl (3.5-5.0); Albumin/Globulin Ratio 1.5 (1.1-1.8); Alkaline Phosphatase 77 U/L (38-126); Anion Gap 15.1 mEq/L (5-15); Aspartate Amino Transferase 27 U/L (17-59); Bilirubin,Total 0.6 mg/dl (0.2-1.3); Blood Urea Nitrogen 8 mg/dl (9-20); Calcium 9.5 mg/dl (8.4-10.2); Carbon Dioxide 27 mmol/L (22.0-30.0); Chloride 103 mmol/L (98-107); Creatinine Clearance Estimated 206 mL/min (50-200); Estimated Glomerular Filt Rate 115 ml/min (>60); GFR (African American) 139 ML/MIN (>60); Globulin 3.3 g/dL (1.3-3.2); Glucose 117 mg/dl (74-100); Lipase 26 U/L (23-300); Potassium 4.1 mmoL/L (3.5-5.1); Sodium 141 mmol/L (136-145); Total Protein,Serum 8.2 g/dl (6.3-8.2)
[2024-10-12 22:35] LABS: D-Dimer 0.62 ug/mL (0.0-0.5); HIV Combo NEGATIVE (Negative)
[2024-10-12 22:44] LABS: Hepatitis C Ab Qual. W/ RFX NEGATIVE (Negative)
[2024-10-12 22:50] LABS: Troponin I < 0.01 ng/ml (0.00-0.034)
--- NOTE | 2024-10-12 22:57 | PC.NURSE ---
IV discontinued. IV catheter tip intact. bleeding controlled.
== END 2024-10-12 23:01 | disposition home or self-care (01) ==
PROVIDERS: Emergency Provider Student in an Organized Health Care Education/Training Program
DX: R07.89 Other chest pain (principal); Z11.59 Encounter for screening for other viral diseases; Z11.4 Encounter for screening for human immunodeficiency virus [HIV]
CPT/HCPCS: 71045; 80053; 83690; 84484; 85025; 85378; 86803; 87389; 93005; 96361; 96374; 99284; J1885; J7120